=== PATIENT | male | born 1975 | race Caucasian/White ===

== ENCOUNTER 2018-06-28 14:35 | Emergency (ER) | payer BC ==
[2018-06-28] MEDS ORDERED: Lidocaine 1%* 5 ML VIAL INJ ONE (15:02)
--- NOTE | 2018-06-28 15:05 | ED ---
Upper Extremity Pain - HPI Summary HPI Summary: Patient is a 42-year-old male who presents emergency department for a finger injury that occurred around noon. Patient states he was playing basketball when the ball came down on the tip of his finger. Patient initially seen at [facility] and was referred to the ER for finger dislocation. Symptoms are mild in severity. Touching moving finger makes symptoms worse. Rest makes symptoms better. No past medical history. - History of Current Complaint Chief Complaint: EDExtremityUpper Stated Complaint: LT FINGER INJURY Time Seen by Provider: 06/28/18 14:57 Hx Obtained From: Patient - Allergies/Home Medications Allergies/Adverse Reactions: Allergies Allergy/AdvReac Type Severity Reaction Status Date / Time Penicillins Allergy Hives Verified 06/28/18 14:55 PMH/Surg Hx/FS Hx/Imm Hx Previously Healthy: Yes Infectious Disease History: No Infectious Disease History: Denies: Traveled Outside the [place] in Last 30 Days - Family History Known Family History: Positive: Other - noncontributory - Social History Occupation: Employed Full-time Lives: With Family Alcohol Use: Weekly Substance Use Type: Reports: None Smoking Status (MU): Never Smoked Tobacco Review of Systems Positive: Other - pain left 5th digit All Other Systems Reviewed And Are Negative: Yes Physical Exam Triage Information Reviewed: Yes Vital Signs On Initial Exam: Initial Vitals Temp Pulse Resp BP Pulse Ox 98.2 F 81 16 142/84 97 06/28/18 14:52 06/28/18 14:52 06/28/18 14:52 06/28/18 14:52 06/28/18 14:52 Vital Signs Reviewed: Yes Appearance: Positive: Well-Appearing - Pt. sitting in chair in NAD. Skin: Positive: Warm, Dry Head/Face: Positive: Normal Head/Face Inspection Eyes: Positive: Normal, EOMI Neck: Positive: Supple Musculoskeletal: Positive: Other - Mild deformity to the distal aspect of the left 5th digit of hand. No breaks in the skin. Neurological: Positive: Normal, CN Intact II-III Psychiatric: Positive: Affect/Mood Appropriate Procedures - Splinting Left 5th Digit Pre-Made Type: finger splint Pre-Proc Neuro Vasc Exam: normal Post-Proc Neuro Vasc Exam: normal Diagnostics - Vital Signs Vital Signs Temp Pulse Resp BP Pulse Ox 06/28/18 14:52 98.2 F 81 16 142/84 97 - Laboratory Lab Statement: Any lab studies that have been ordered have been reviewed, and results considered in the medical decision making process. Course/Dx - Course Course Of Treatment: Patient presenting with isolated finger injury. X-ray shows dislocation at the PIP joint an avulsion fracture at the base of the middle phalanx. Digital block was performed using 4 cc of percent lidocaine with mild to moderate anesthesia. I initially attempted to reduce finger without success and finger was successfully reduced by Dr. Monet, please see his procedure note. Repeat x-ray shows reduction of finger with avulsion fracture. Finger was splinted. Patient to call orthopedics tomorrow for close follow-up appointment. Keep splint in place. Ice and elevate. Motrin or Tylenol for pain. Patient understands and agrees with plan. - Diagnoses Differential Diagnosis/HQI/PQRI: Positive: Contusion, Fracture (Closed), Strain , Sprain Provider Diagnoses: Finger dislocation, Finger fracture Discharge - Sign-Out/Discharge Documenting (check all that apply): Patient Departure - Discharge Plan Condition: Improved Disposition: HOME Patient Education Materials: Finger Fracture (ED), Finger Dislocation (ED) Referrals: Otis Saavedra MD [Primary Care Provider] - Ileana Dupree MD [Medical Doctor] - Additional Instructions: Call Dr. Dupree's office tomorrow to schedule an appointment Keep splint in place Ice and elevate Tylenol or Motrin for pain as directed - Billing Disposition and Condition Condition: IMPROVED Disposition: Home
--- NOTE | 2018-06-28 15:26 | RAD ---
HISTORY: injury, left fifth digit injury COMPARISONS: None VIEWS: 3 , Frontal, lateral, and oblique views of the fifth digit of the left hand FINDINGS: BONE DENSITY: Normal. BONES: There is a bone fragment consistent with a fracture of the volar plate of the base of the middle phalanx of the fifth digit. JOINTS: There is no arthropathy. ALIGNMENT: There is posterior and medial (ulnar) dislocation of the middle phalanx with respect to the proximal phalanx. SOFT TISSUES: Unremarkable. OTHER FINDINGS: None. IMPRESSION: FRACTURE DISLOCATION AT THE FIFTH PIP JOINT
--- NOTE | 2018-06-28 16:00 | ED ---
Course/Dx - Diagnoses Provider Diagnoses: Finger dislocation, Finger fracture Discharge - Sign-Out/Discharge Documenting (check all that apply): Patient Departure - Discharge Plan Condition: Improved Disposition: HOME Patient Education Materials: Finger Fracture (ED), Finger Dislocation (ED) Referrals: Otis Saavedra MD [Primary Care Provider] - Ileana Dupree MD [Medical Doctor] - Additional Instructions: Call Dr. Dupree's office tomorrow to schedule an appointment Keep splint in place Ice and elevate Tylenol or Motrin for pain as directed - Billing Disposition and Condition Condition: IMPROVED Disposition: Home - Attestation Statements Document Initiated by Scribe: Yes Documenting Scribe: Piotr Meyer Provider For Whom Scribe is Documenting (Include Credential): Dr. Jase Monet MD Scribe Attestation: Piotr Sotomayor, scribed for Dr. Jase Monet MD on 06/28/18 at 2137. Scribe Documentation Reviewed: Yes Provider Attestation: The documentation as recorded by the scribPiotr manjarrez accurately reflects the service I personally performed and the decisions made by me, Dr. Jase Monet MD Procedure Note / Orthopedic - Dislocation Treatment Bone(s) / Specify: L middle phalynx Location: Proximal Anesthesia: Digital Procedure / Technique: Manual reduction with traction. Anatomical alignment, good ROM after reduction. Post Dislocation Treatment: N/V Intact, Allignment Assessed, Relocation Acceptable, Sedation Adequate
--- NOTE | 2018-06-28 16:30 | RAD ---
Indication: Post reduction LEFT fifth finger PIP dislocation. Comparison: No relevant prior exams available on the [facility] for comparison. Technique: AP, lateral, and oblique views of the LEFT fifth finger REPORT AND IMPRESSION: #. Restored alignment at the proximal interphalangeal joint. Comminuted avulsion fracture from the volar base of the middle phalanx with fracture fragments visible along the volar and medial margins of the joint. Fusiform soft tissue swelling.
[2018-06-28 16:43] VITALS: BP 123/85
== END 2018-06-28 16:42 | disposition home or self-care (01) ==
LOC: ED 14:35
DX: S62.623A Displaced fracture of middle phalanx of left middle finger, initial encounter for closed fracture (principal); S63.273A Dislocation of unspecified interphalangeal joint of left middle finger, initial encounter; W21.05XA Struck by basketball, initial encounter; Y93.67 Activity, basketball; Y92.9 Unspecified place or not applicable; Z88.0 Allergy status to penicillin
CPT/HCPCS: 73140; 99282

== ENCOUNTER 2018-12-09 15:17 | Emergency (ER) | payer BC ==
[2018-12-09 15:43] VITALS: BP 129/85
--- NOTE | 2018-12-09 15:55 | UC ---
Throat Pain/Nasal Deepak HPI - HPI Summary HPI Summary: 43 y/o male presents to the urgent care c/o sore throat and chills for the past 3 days. pain w/ swallowing is 6/10. Pt reports today he developed mild dry cough. Pt has not taken anything to alleviate symptoms. He took Naproxen last night to alleviate symptoms w/o any improvement. Pt denies fever, SOB, respiratory distress, chest pain, dizziness, N/V/D, KIM, or body aches. - History of Current Complaint Chief Complaint: UCRespiratory Stated Complaint: SORE THROAT Time Seen by Provider: 12/09/18 15:53 Hx Obtained From: Patient Onset/Duration: Gradual Onset, Lasting Days - 3 days, Still Present, Worse Since - today Severity: Moderate Pain Intensity: 6 Pain Scale Used: 0-10 Numeric Cough: None Associated Signs & Symptoms: Positive: Dysphagia. Negative: Fever - Epiglottits Risk Factors Epiglottis Risk Factors: Negative - Allergies/Home Medications Allergies/Adverse Reactions: Allergies Allergy/AdvReac Type Severity Reaction Status Date / Time Penicillins Allergy Hives Verified 12/09/18 15:42 PMH/Surg Hx/FS Hx/Imm Hx Previously Healthy: Yes - Pt denies PMHX - Surgical History Surgical History: Yes Surgery Procedure, Year, and Place: CYST ON LEFT ARM REMOVED - Family History Known Family History: Positive: None - Pt denies FMHX, Other - noncontributory - Social History Occupation: Employed Full-time Lives: With Family Alcohol Use: Occasionally Substance Use Type: None Smoking Status (MU): Never Smoked Tobacco Review of Systems All Other Systems Reviewed And Are Negative: Yes Constitutional: Positive: Chills Skin: Positive: Negative Eyes: Positive: Negative ENT: Positive: Sore Throat Respiratory: Positive: Cough - mild dry today Cardiovascular: Positive: Negative Gastrointestinal: Positive: Negative Genitourinary: Positive: Negative Motor: Positive: Negative Neurovascular: Positive: Negative Musculoskeletal: Positive: Negative Neurological: Positive: Negative Psychological: Positive: Negative Is Patient Immunocompromised?: No Physical Exam - Summary Physical Exam Summary: VITAL SIGNS: Reviewed. GENERAL: Patient is a well developed and nourished male who is sitting comfortable in the examining table. Patient is not in any acute respiratory distress. HEAD AND FACE: No signs of trauma. No ecchymosis, hematomas or skull depressions. No sinus tenderness. EYES: PERRLA, EOMI x 2, No injected conjunctiva, no nystagmus. No photophobia. EARS: Hearing grossly intact. Ear canals and tympanic membranes are within normal limits. MOUTH: Positive pharynx with erythema, no exudates, mild palatal petechiae. B/L tonsillar enlargement with no exudate. Uvula in midline. NECK: Supple, trachea is midline, Positive anterior cervical lymphadenopathy, no JVD, no carotid bruit, no c-spine tenderness, neck with full ROM. No meningeal signs, no Kernig's or brudzinskis signs. CHEST: Symmetric, no tenderness at palpation LUNGS: Clear to auscultation bilaterally. No wheezing or crackles. CVS: Regular rate and rhythm, S1 and S2 present, no murmurs or gallops appreciated. ABDOMEN: Soft, non-tender. No signs of distention. No rebound no guarding, and no masses palpated. Bowel sounds are normal. EXTREMITIES: FROM in all major joints, no edema, no cyanosis or clubbing. NEURO: Alert and oriented x 3. No acute neurological deficits. Speech is normal and follows commands. SKIN: Dry and warm Triage Information Reviewed: Yes Vital Signs: Initial Vital Signs Temp 98.8 F 12/09/18 15:39 Pulse 81 12/09/18 15:39 Resp 16 12/09/18 15:39 BP 129/85 12/09/18 15:39 Pulse Ox 97 12/09/18 15:39 Throat Pain/Nasal Course/Dx - Course Course Of Treatment: 43 y/o male presents to the urgent care c/o sore throat and chills for the past 3 days. pain w/ swallowing is 6/10. Pt reports today he developed mild dry cough. Pt has not taken anything to alleviate symptoms. He took Naproxen last night to alleviate symptoms w/o any improvement. Pt denies fever, SOB, respiratory distress, chest pain, dizziness, N/V/D, KIM, or body aches. Pt w/ tonsillitis on examination. Rapid strep ordered: negative. Throat culture ordered and sent to lab. Pt will be Tx for Tonsillitis w/ Azitromycin since he is PCN allergic. Pt given at the clinic Ibuprofen PO by nurse to alleviate symptoms. Pt also Rx ibuprofen PO and Chlorhexidine as directed below to alleviate symptoms. PT Advised on hand washing to avoid spreading. Also advised to rest, eat well and avoid strenuous exercise. If symptoms do not improve advised to return to the urgent care or f/u with PCP in 2 days for further evaluation and treatment. If symptoms worsen advised to go to the ER for further management. PT understood and agreed w/ plan of care. - Differential Dx/Diagnosis Differential Diagnosis/HQI/PQRI: Influenza, Laryngitis, Mononucleosis, Peritonsillar Abscess, Pharyngitis, Sinusitis, Tonsillitis Provider Diagnosis: Tonsillitis Discharge - Sign-Out/Discharge Documenting (check all that apply): Patient Departure - d/C home All imaging exams completed and their final reports reviewed: No Studies - Discharge Plan Condition: Stable Disposition: HOME Prescriptions: Azithromycin 500 mg PO Q24HR #5 tablet Chlorhexidine MOUTHWASH 0.12%* [Peridex Mouth Wash 0.12%*] 15 ml .SEE ORDER BID #1 oral.soln Ibuprofen TAB* [Motrin TAB* 800 MG] 800 mg PO Q6H PRN #30 tab PRN Reason: Sore Throat Patient Education Materials: Tonsillitis (ED) Referrals: Otis Saavedra MD [Primary Care Provider] - 2 Days Additional Instructions: 1- Please take the full course of the antibiotic to avoid resistance. Please take yogurts w/ probiotics or culturelle to protect yout GI system 2-Please take ibuprofen PO q6-8hrs prn as instructed after meals to alleviate pain and swelling. Increase fluid intake, eat well, rest and avoid strenuous exercise. 3-If symptoms do not improve or worsen please return to the urgent care or f/u with your PCP in 2-3 daysfor further evaluation and treatment. 4- If you develop difficulty breathing, change in voice or respiratory distress please go immediately to the ER for further management 5- Throat culture sent to lab to r/o any abnormality. You will be notified of any abnormal result. - Billing Disposition and Condition Condition: STABLE Disposition: Home - Attestation Statements Provider Attestation: I was available for consult. This patient was seen by the PILAR. The patient was not presented to , seen by or examined by ut -Marquise Hamilton MD
[2018-12-09] MEDS ORDERED: Ibuprofen TAB* 400 MG PO ONE (16:04)
== END 2018-12-09 16:33 | disposition home or self-care (01) ==
LOC: UCEAST 15:17
DX: J03.90 Acute tonsillitis, unspecified (principal); Z88.0 Allergy status to penicillin
CPT/HCPCS: 87070; 87651; 99212; A9270-GY; G0463